=== PATIENT | male | born 1980 | race American Indian/Alaskan Native ===

== ENCOUNTER 2016-05-02 00:45 | Emergency (ER) | payer OTHER ==
[~2016-05-02 00:45] MED LIST: NACL 0.9% 1000 ML 2,000 ML ONE
[2016-05-02] MEDS ORDERED: NACL 0.9% 1000 ML 1,000 ML IV ONE ×2 (01:00)
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
[2016-05-02] MEDS ORDERED: ADRENALIN ONE (10:57)
[2016-05-02] MEDS ORDERED: XYLOCAINE CARDIAC IV ONE (10:57)
[2016-05-02] MEDS ORDERED: SODIUM BICARBONATE ONE (10:57)
== END 2016-05-02 03:30 ==
LOC: EEVIPCON 00:45 → ED 00:45
DX: I46.9 Cardiac arrest, cause unspecified (principal); S81.801A Unspecified open wound, right lower leg, initial encounter; W34.00XA Accidental discharge from unspecified firearms or gun, initial encounter; Y93.9 Activity, unspecified; Y99.9 Unspecified external cause status; Y92.9 Unspecified place or not applicable
CPT/HCPCS: 31500; 86850; 86900; 86901; 86920; 92950; 99285; J0171; J2001; J7030; P9016